=== PATIENT | female | born 1975 | race Caucasian/White ===

== ENCOUNTER → 2023-04-19 | Outpatient (CLI) | payer OTHER, SELFPAY ==
[2023-04-19 17:42] LABS: Prothrombin Time (Protime)PT. 12.7 SECONDS (11.7-14.9)
[2023-04-19 17:43] LABS: Absolute Lymphocyte Count 2.21 X10^3/uL (0.83-4.51); Absolute Neutrophil Count 3.4 X10^3/uL (2.0-7.7); Basophil# 0.04 X10^3/uL; Basophil% 0.6 % (0-1); Eosinophil# 0.06 X10^3/uL; Hematocrit 41.4 % (37-47); Hemoglobin 13.6 g/dL (12.0-15.0); Lymphocyte # 2.21 X10^3/ul (0.83-4.51); Lymphocyte % 35.1 % (19-41); Mean Corp Hgb Conc 32.9 g/dL (32-36); Mean Corpuscular Hgb 31.3 pg (27.0-32.0); Mean Corpuscular Volume 95.2 fL (81-99); Mean Platelet Vol. 10.2 fl (6.2-12.0); Monocyte# 0.62 X10^3/uL; Monocyte% 9.9 % (0-10); NRBC Flagged by Analyzer 0 % (0-5); Neutrophil # 3.35 X10^3/uL (2.7-7.7); Neutrophil % 53.2 % (47-70); Platelet Count 251 K/mm3 (150-450); RBC Distribution Width CV 12.2 % (11.6-14.6); RBC Distribution Width SD 42.4 fl (35.1-43.9); Red Blood Count 4.35 M/mm3 (4.2-5.4); White Blood Count 6.3 K/mm3 (4.4-11.0)
[2023-04-19 17:44] LABS: Partial Thromboplast Time 29.4 Seconds (24.1-36.2)
[2023-04-19 18:07] LABS: Albumin, Serum 3.8 g/dL (3.2-5.0); Anion Gap 5 (5-15); BUN 11 mg/dL (7-18); BUN/Creat Ratio 14.3 RATIO (10-20); Calcium,Total 8.8 mg/dL (8.5-10.1); Chloride 108 mmol/L (98-107); Creatinine, Serum 0.77 mg/dL (0.55-1.02); EST Glomerular Filtration Rate 86 mL/min (>60); Est Glom Filt Rate - Afr Amer 104 mL/min (>60); Glucose 74 mg/dL (74-106); Potassium 3.8 mmol/L (3.5-5.1); Sodium Level 139 mmol/L (136-145)
[2023-04-21 08:08] LABS: Fructosamine 223 umol/L (0-285)
== END | disposition home or self-care (01) ==
PROVIDERS: PCP Family Medicine
DX: M16.12 Unilateral primary osteoarthritis, left hip (principal)
CPT/HCPCS: 36415; 80048; 81002; 82040; 82306; 82985; 83036; 85025; 85610; 85730; 87086

== ENCOUNTER → 2023-04-23 | Outpatient (CLI) | payer OTHER, SELFPAY ==
[2023-04-23 15:45] LABS: Color, Urine Yellow (Yellow); Glucose, Dipstick Normal (Normal); Ketone-Dipstick Negative (Negative); Leukocyte Esterase-Dipstick Negative /ul (Negative); Nitrite-Dipstick Negative (Negative); Occult Blood-Urine Negative /ul (Negative); Protein-Dipstick Negative (Negative); Specific Gravity, Urine 1.015 (1.002-1.030); Urine Bilirubin Dipstick Negative (Negative); Urine Clarity Clear (Clear); Urine Urobilinogen Normal (Normal)
--- OUTSIDE RECORDS SUMMARY | 2023-04-23 18:44 | XMS RPT_ITS | CCD ---
Author Name Unknown Address [id number] [place] [address] Organization [facility] Care Team Providers Care Movable Bulkhead Installer Name Role Phone Sanjeev Fuentes Unavailable Unavailable PROVIDER, UNKNOWN Unavailable Unavailable Adan Lawson Unavailable Unavailable Carlos Escalante MD Unavailable [phone] Bhanu Zee DO Unavailable Adan Lawson Primary Care Provider PRESTON CABEZAS Attending Unavailable ADAN LAWSON Primary Care Unavailable PRESTON CABEZAS Attending Unavailable ADAN LAWSON Primary Care Unavailable NO FAMILY PHYSICIAN, 837 Primary Care Unavail able NO FAMILY PHYSICIAN, 837 Primary Care Unavail able SANJEEV FUENTES MD Attending Unavailable Mahesh Snyder MD Primary Care Provider MAHESH SNYDER Primary Care Unavailable Allergies Allergy Classification Reported Allergen(s) Allergy Type Date of Onset Reaction(s) Facility (3 sources) Acetaminophen / HYDROcodone Drug Allergy 03-21-19 22 itching [facility] Work Phone: (3 sources) Clindamycin Drug Allergy 09-13-19 21 redness, hives [facility] Work Phone: (3 sources) Penicillin G Drug Allergy 09-13-19 21 hives [facility] Work Phone: (3 sources) Seafood; Translations: [SEAFOOD] food allergy 09-13-19 21 advised not to eat after allergy test [facility] Work Phone: (3 sources) Shellfish; Translations: [SHELLFISH] food allergy 09-13-19 21 advised not to eat after allergy test [facility] Work Phone: (3 sources) PLANT POLLENS; Translations: [PLANT POLLENS] allergy to substance 10-15-19 21 hay fever [facility] Work Phone: (3 sources) STINGING INSECTS; Translations: [STINGING INSECTS] allergy to substance 09-13-19 21 anaphylaxis [facility] Work Phone: (3 sources) GLUTEN INTOLERANCE; Translations: [GLUTEN INTOLERANCE] food allergy 09-13-19 avoid it for inflammatory issues [facility] Work Phone: (3 sources) Clindamycin; Translations: [CLINDAMYCIN] Drug Allergy 09-13-19 21 Itching, Rash, Hives, Unknown [facility] (3 sources) Penicillins; Translations: [PENICILLINS] Drug Intolerance 02-27-19 08 Hives, Itching, Rash, Unknown [facility] (2 sources) Contrast media; Translations: [CONTRAST DYE] Propensity to adverse reactions 02-27-19 08 [facility] Work Phone: (1 source) Penicillins Propensity to adverse reactions 02-27-19 08 [facility] Work Phone: Medications Current Medications Medication Drug Class(es) Dates Sig (Normalized) Sig (Original) baclofen 10 mg oral tablet (4 sources) gamma-Aminobutyric Acid-ergic Agonist Start: 09-24-2022 baclofen (Lioresal) 10 MG tablet Completed/Discontinued Medications Medication Drug Class(es) Dates Sig (Normalized) Sig (Original) acetaminophen 325 mg / oxyCODONE hydrochloride 5 mg oral tablet (1 source) Opioid Agonist PERCOCET 5-325 M G TABS Take 1 tablet by mouth as needed for pain oxycodone-acetami oma [id number] Ana Lilia Stoneine WOUND TREATMENT RN Ethinyl Estradiol / Levonorgestrel (1 source) Progestin, Estrogen, Progestin-containi ng Intrauterine Device Start: 06-16-2015 take 1 tablet by mouth once daily L-Norgest&E Estradiol-E Estrad (CAMRESE LO) 0.10 mg-20 mcg (84)/10 mcg (7) 3MPk Take 1 tablet by mouth once daily. 0 06/16/2015 Active Problems Active Problems Problem Classification Problem Date Documented Date Episodic/Chronic Disorders of lipid metabolism (1 source) Hyperlipidemia; Translations: [Hyperlipidemia, unspecified] Onset: 06-07-2009 06-07-2009 Chronic Endometriosis (1 source) Endometriosis (clinical); Translations: [Endometriosis, unspecified] Onset: 06-07-2009 06-07-2009 Chronic Joint disorders and dislocations; trauma-related (3 sources) Other articular cartilage disorders, left hip; Translations: [Articular cartilage disorder, pelvic region and thigh] Onset: 12-30-2020 12-30-2020 Chronic Other connective tissue disease (1 source) Iliopsoas bursitis of left hip; Translations: [Other bursitis of hip, left hip] Onset: 05-26-2021 05-26-2021 Episodic Other inflammatory condition of skin (1 source) Rosacea; Translations: [Rosacea, unspecified] Onset: 06-07-2009 06-07-2009 Chronic Other non-traumatic joint disorders (4 sources) Hip pain; Translations: [Pain in left hip] Onset: 05-17-2021 05-17-2021 Episodic Other non-traumatic joint disorders (2 sources) Pain in left hip; Translations: [Pain in left hip] Onset: 10-01-2022 Episodic Other screening for suspected conditions (not mental disorders or infectious disease) (2 sources) Encounter for screening mammogram for malignant neoplasm of breast; Translations: [Encntr screen mammogram for malignant neoplasm of breast] Onset: 12-03-2017 Episodic Regional enteritis and ulcerative colitis (1 source) Other ulcerative colitis without complications; Translations: [Other ulcerative colitis without complication (HCC)] Onset: 04-11-2022 Chronic Spondylosis; intervertebral disc disorders; other back problems (3 sources) Degeneration of lumbar intervertebral disc; Translations: [Other intervertebral disc degeneration, lumbar region] Onset: 10-13-2020 10-13-2020 Chronic Past or Other Problems Problem Classification Problem Date Documented Date Episodic/Chronic Noninfectious gastroenteritis (1 source) Colitis; Translations: [Noninfective gastroenteritis and colitis, unspecified] Onset: 06-07-2009 06-07-2009 Episodic Other non-traumatic joint disorders (3 sources) Disorder of hip joint; Translations: [Other specified joint disorders, left hip] Onset: 12-06-2020 12-06-2020 Episodic Other non-traumatic joint disorders (1 source) Arthralgia of the pelvic region and thigh; Translations: [Pain in unspecified hip] Onset: 09-22-2010 09-22-2010 Episodic Unclassified (3 sources) Problem Results Test Name Value Interpretation Reference Range Facil ity Vital Signs Date Time Vital Sign Value Performing Clinician Facility 10-12-2022 13:04-0400 Body height 162.6 cm Preston Cabezas MD Work Phone: [facility] 10-12-2022 13:04-0400 Body mass index (BMI) [Ratio] 23.17 kg/m2 Preston Cabezas MD Work Phone: [facility] 10-12-2022 13:04-0400 Body weight 61.24 kg Preston Cabezas MD Work Phone: [facility] 10-12-2022 13:04-0400 Diastolic blood pressure 74 mm[Hg] Preston Cabezas MD Work Phone: [facility] 10-12-2022 13:04-0400 Heart rate 79 /min Preston Cabezas MD Work Phone: [facility] 10-12-2022 13:04-0400 Systolic blood pressure 125 mm[Hg] Preston Cabezas MD Work Phone: [facility] 10-01-2022 16:21-0400 Body height 162.6 cm Preston Cabezas MD Work Phone: [facility] 10-01-2022 16:21-0400 Body mass index (BMI) [Ratio] 23.17 kg/m2 Preston Cabezas MD Work Phone: [facility] 10-01-2022 16:21-0400 Body weight 61.24 kg Preston Cabezas MD Work Phone: [facility] 10-01-2022 16:21-0400 Diastolic blood pressure 84 mm[Hg] Preston Cabezas MD Work Phone: [facility] 10-01-2022 16:21-0400 Heart rate 64 /min Preston Cabezas MD Work Phone: [facility] 10-01-2022 16:21-0400 Systolic blood pressure 136 mm[Hg] Preston Cabezas MD Work Phone: [facility] NEGATED: Highlighted [id number] 12:49-0400 Body height 162.56 cm Lindsay Spencer AT [facility] Work Phone: NEGATED: Highlighted [id number] 12:49-0400 Body height 163 cm Lindsay Spencer AT [facility] Work Phone: NEGATED: Highlighted [id number] 12:49-0400 Body mass index (BMI) [Ratio] 24.98 kg/m2 Lindsay Spencer AT [facility] Work Phone: NEGATED: Highlighted [id number] 12:49-0400 Body weight 65.77 kg Lindsay Spencer AT [facility] Work Phone: NEGATED: Highlighted [id number] 12:49-0400 Body weight 66 kg Lindsay Spencer AT [facility] Work Phone: NEGATED: Highlighted [id number] 10:47-0400 Body height 162.56 cm [facility] Work Phone: NEGATED: Highlighted [id number] 10:47-0400 Body height 163 cm [facility] Work Phone: NEGATED: Highlighted [id number] 10:47-0400 Body mass index (BMI) [Ratio] 24.98 kg/m2 [facility] Work Phone: NEGATED: Highlighted [id number] 10:47-0400 Body weight 65.77 kg [facility] Work Phone: NEGATED: Highlighted [id number] 10:47-0400 Body [facility] 66 [facility] NEGATED: Highlighted [id number] 13:54-0500 Body height 162.56 cm Ana Liliarenetta Brice WOUND TREATMENT RN [facility] Work Phone: NEGATED: Highlighted [id number] 13:54-0500 Body height 163 cm [facility] Work Phone: NEGATED: Highlighted [id number] 13:54-0500 Body mass index (BMI) [Ratio] 24.46 kg/m2 Ana Lilia [facility] Work Phone: NEGATED: Highlighted [id number] 13:54-0500 Body temperature 97.8 [degF] [facility] Work Phone: NEGATED: Highlighted [id number] 13:54-0500 Body temperature 97.88 [degF] [facility] Work Phone: NEGATED: Highlighted [id number] 13:54-0500 Body weight 64.41 kg Ana Liliarenetta Brice WOUND TREATMENT RN [facility] Work Phone: NEGATED: Highlighted [id number] 13:54-0500 [facility] Work Phone: Encounters Encounter Date Encounter Type Care Provider Facility Start: 02-07-2023 End: 02-08-2023 ambulatory [facility] Facility:[facility] Start: 02-07-2023 Encounter for genera l adult medical examination without abnormal [facility] Start: 12-04-2022 End: 12-05-2022 ambulatory 837 NO FAMILY PHYSICIAN Facility:[facility] Start: 10-12-2022 End: 10-12-2022 ambulatory [facility] Start: 10-12-2022 End: 10-12-2022 Patient encounter procedure Preston Cabezas MD Work Phone: [facility] Procedures Date Procedure Procedure Detail Performing Clinician Start: 05-26-2021 End: 05-26-2021 BP scrn no perf at interval Bhanu L Yayo DO Work Phone: Start: 05-26-2021 End: 05-26-2021 Calc BMI norm parameters Bhanu An Clelan d DO Work Phone: Start: 05-26-2021 End: 05-26-2021 Current tobacco non-user cad cap copd pv dm Bhanu L Yayo DO Work Phone: Start: 05-26-2021 End: 05-26-2021 Docrev cur meds by [facility] clin Bhanu Zee DO Work Phone: Start: 05-26-2021 End: 05-26-2021 No doc of pain Bhanu Juve Yayo DO Work Phone: Start: 05-26-2021 End: 05-26-2021 Patient encounter procedure Bhanuthang Zee DO Work Phone: Start: 05-17-2021 End: 05-17-2021 BP scrn no perf at interval Carlos Escalante MD Work Phone: Start: 05-17-2021 End: 05-17-2021 Calc BMI norm parameters Carlos hazel MD Work Phone: Start: 05-17-2021 End: 05-17-2021 Current tobacco non-user cad cap copd pv dm Carlos Escalante MD Work Phone: Start: 05-17-2021 End: 05-17-2021 Docrev cur meds by [facility] clin Carlos Escalante MD Work Phone: Start: 05-17-2021 End: 05-17-2021 Pain doc pos and plan Carlos Escalante MD Work Phone: Start: 05-17-2021 End: 05-17-2021 Patient encounter procedure Carlos Escalante MD Work Phone: Start: 04-04-2021 End: 04-04-2021 BP scrn no perf at interval Carlos Escalante MD Work Phone: Start: 04-04-2021 End: 04-04-2021 Calc BMI norm parameters Carlos hazel MD Work Phone: Start: 04-04-2021 End: 04-04-2021 Current tobacco non-user cad cap copd pv dm Carlos Escalante MD Work Phone: Start: 04-04-2021 End: 04-04-2021 Docrev cur meds by [facility] Carlos Escalante MD Work Phone: Start: 04-04-2021 End: 04-04-2021 Pain doc pos and plan Carlos Escalante MD Work Phone: Start: 04-04-2021 End: 04-04-2021 Patient encounter procedure Carlos Escalante MD Work Phone: Start: 03-07-2020 Lipid 1996 panel - S kerri or Plasma Xr Sepideh Start: 01-13-2020 End: 01-13-2020 Radex spine cervical 4 or 5 views [facility] Provider Start: 12-29-2007 Colonoscopy Xr Immanueli ck NEGATED: Highlighted rowStart: 05-26-2021 End: 05-26-2021 Documentation of current medications Lindsay LANCASTER NEGATED: Highlighted rowStart: 05-17-2021 End: 05-17-2021 Documentation of current medications Radha [facility] NEGATED: Highlighted rowStart: 04-04-2021 End: 04-04-2021 Documentation of current medications Ana Lilia Brice LPN Plan of Treatment Date Care Activity Detail Author Start: 2037 Hepatitis B Vaccine (1 of 3 - Risk 3-dose series) Hepatitis B Vaccine (1 of 3 - Risk 3-dose series) [facility] Start: 06-14-2027 Zoster Vaccines (1 of 2) Zoster Vaccines (1 of 2) [facility] Start: 04-11-2025 Diabetes Screening Diabetes Screening [facility] Start: 03-07-2025 Lipid 1996 panel - Serum or Plasma Lipid Screening [facility] Start: 10-19-2022 Covid-19 Vaccine ( season) Covid-19 Vaccine () [facility] Start: 10-19-2022 Influenza vaccination Influenza Vaccine (#1) [facility] Start: 10-12-2022 End: 10-12-2022 Patient encounter procedure 10/12/2022 1:00 PM EDT [facility] [address] [place] [address] Preston Cabezas MD [address] [place] [address] [address] [place] [address] [facility] Start: 2022 Cologuard (FIT-DNA) Cologuard (FIT-DNA) [facility] Start: 2022 Colonoscopy Colonoscopy [facility] Start: 2022 Colorectal Cancer Screening Colorectal Cancer Screening [facility] Start: [address] Colonography [facility] Start: 2022 Fecal Occult Blood Fecal Occult Blood [facility] Start: 2022 Sigmoidoscopy Sigmoidoscopy [facility] Start: 02-18-2022 Depression Assessment Depression Assessment [facility] Start: 06-14-2021 End: 06-14-2021 Patient encounter procedure Appointment [facility] Work Phone: Start: 2021 End: 2021 Patient encounter procedure Appointment [facility] Work Phone: Start: 06-12-2021 End: 06-12-2021 Patient encounter procedure Appointment [facility] Work Phone: Start: 06-07-2021 End: 06-07-2021 Patient encounter procedure Appointment [facility] Work Phone: Start: 06-05-2021 End: 06-05-2021 Patient encounter procedure Appointment [facility] Work Phone: Start: 05-31-2021 End: 05-31-2021 Patient encounter procedure Appointment [facility] Work Phone: Start: 05-29-2021 End: 05-29-2021 Patient encounter procedure Appointment [facility] Work Phone: Start: 05-26-2021 End: 05-26-2021 Patient encounter procedure Appointment [facility] Work Phone: Start: 05-24-2021 End: 05-24-2021 Patient encounter procedure Appointment [facility] Work Phone: Start: 05-22-2021 End: 05-22-2021 Patient encounter procedure Appointment [facility] Work Phone: Start: 05-17-2021 End: 05-17-2021 Patient encounter procedure Appointment [facility] Work Phone: Start: 05-17-2021 End: 05-17-2021 Us compl joint r-t w/image documentation Musculoskeletal ultrasound- nonvascular - left lower extremity [facility] Work Phone: Start: 04-26-2021 End: 04-26-2021 Patient encounter procedure Appointment [facility] Work Phone: Start: 04-24-2021 End: 04-24-2021 Patient encounter procedure Appointment [facility] Work Phone: Start: 04-19-2021 End: 04-19-2021 Patient encounter procedure Appointment [facility] Work Phone: Start: 04-17-2021 End: 04-17-2021 Patient encounter procedure Appointment [facility] Work Phone: Start: 04-12-2021 End: 04-12-2021 Patient encounter procedure Appointment [facility] Work Phone: Start: 04-10-2021 End: 04-10-2021 Patient encounter procedure Appointment [facility] Work Phone: Start: 04-05-2021 End: 04-05-2021 Patient encounter procedure Appointment [facility] Work Phone: Start: 04-04-2021 End: 04-04-2021 Patient encounter procedure Appointment [facility] Work Phone: Start: 12-03-2018 Mammography Mammogram Screening [facility] Start: 2017 Screening for malignant neoplasm of breast Mammogram [facility] Start: 04-19-2015 Pap Testing Pap Testing [facility] Start: 06-14-2007 HPV Testing HPV Testing [facility] Start: 06-14-2007 Screening for malignant neoplasm of cervix [facility] Start: 1998 Screening for malignant neoplasm of cervix Pap Smear [facility] Start: 1996 DTaP/Tdap/Td Vaccines (1 - Tdap) DTaP/Tdap/Td Vaccines (1 - Tdap) [facility] Start: 1996 Hepatitis A Vaccine (1 of 2 - Risk 2-dose series) Hepatitis A Vaccine (1 of 2 - Risk 2-dose series) [facility] Start: 1996 Urine microalbumin profile DTaP,Tdap,Td Vaccine (1 - Tdap) [facility] Start: 06-14-1995 Hepatitis C screening Hepatitis C Screening [facility] Start: 06-14-1995 Hepatitis C Screening Hepatitis C Screening [facility] Start: 06-14-1995 HIV Screening HIV Screening [facility] Start: 06-14-1995 MMR Vaccine (1 of 2 - Risk 2-dose series) MMR Vaccine (1 of 2 - Risk 2-dose series) [facility] Start: 1989 Depression Screening Depression Screening [facility] Start: 06-14-1987 Meningococcal B Vaccine: Consider Based On Risk (1 of 4 - Increased Risk) Meningococcal B Vaccine: Consider Based On Risk (1 of 4 - Increased Risk) [facility] Start: 1978 MMR Vaccines (1 of 1 - Standard series) MMR Vaccines (1 of 1 - Standard series) [facility] Start: 1977 Hepatitis B Vaccines (1 of 3 - 3-dose series) Hepatitis B Vaccines (1 of 3 - 3-dose series) [facility] Start: 1977 HIV screening HIV Screening [facility] Start: 1977 Screening for malignant neoplasm of colon [facility] Immunizations Immunization Date Immunization Notes Care Provider Fa cility 11-17-2021 influenza virus vacc ine, unspecified formulation Preston Cabezas MD Work Phone: [facility] Payers Date Payer Category Payer Unknown 2016 Unknown [id number] 1975 Unknown [id number] 1975 Unknown [id number] 1975 Unknown [id number] Social History Date Type Detail Facility Start: 04-04-2021 End: 05-26-2021 Assertion Unknown if ever smoked [facility] Work Phone: Start: 10-01-2022 Tobacco smoking stat [facility] Never smoked tobacco [facility] Start: 10-01-2022 End: 10-12-2022 History of Social function [facility] Start: 10-01-2022 End: 10-12-2022 Tobacco use panel [facility] Start: 1975 Sex Assigned At Not on file [facility] Start: 12-14-2019 End: 10-12-2022 Exposure to SARS-CoV-2 (event) Not sure [facility] Start: 02-24-2016 Alcohol intake Current non-dr machine clothing replacer of alcohol (finding) [facility] History of Present illness Narrative 10-12-2022 Preston Cabeazs MD - 10/12/2022 1:00 PM EDT Note Date & Type Note Facility 10-12-2022 History of Presen t illness Narrative Images from the original note were not included. [facility] [address] [facility] [address] Dept: [phone] Dept Chief Complaint Patient presents with Follow-up PRP LEFT hip Subjective History of Present Illness: Aleida Kapoor is a 47 y.o. female who presents today for ultrasound guided injection of left hip. She rates symptoms as a 5/10 at rest and a 8/10 at worst. Imaging to date: none Prior targeted injections: 3x CSI Psoas, 3x 2021 Back injections w/pain management, diagnostic hip injection Fall risk assessment: Less than 65, not applicable Objective Visit Vitals BP 125/74 Pulse 79 Physical Exam: No sign of infection overlying injection site. External Notes No pertinent interval updates Labs No results found for: HGBA1C No results found for: CREATININE Imaging I have personally reviewed the images pertinent to the appointment today EMG/NCT N/A Procedure Procedure completed today, details below Use of ultrasound visualization of the needle was required to increase patient's safety by excluding inadvertent intermuscular or intertendinous placement and minimizing bleeding and injury by avoiding osteochondral and nearby neurovascular structures. Guidance also maximizes accurate injection placement and likely clinical benefit beyond that obtained from a non-guided injection. This allows increased diagnostic specificity when evaluating effectiveness of the injection. Verbal and written consent was obtained from the patient. Consent included possibility of bleeding, infection, worsening pain. Right antecubital blood draw yielded 53 mL of whole blood which was spun down, using the Zwamy system dialing in 2 % hematocrit, PRP that yielded 2.4mL of PRP and I added 3.6mL of PPP for a total of 6 mL. Using real-time ultrasound I localized the Left hip joint. Sterile prep. Using a 20-gauge 3.5 inch needle and using direct ultrasound guidance I anesthetized the soft tissues with 5mL of 1% lidocaine to and then injected 1 mL of normal saline to flush any residual anesthetic out of the needle. I then injected a total of 6 mL of the PRP into the Left hip joint. The patient tolerated the procedure well. There were no complications. Pertinent ultrasound images were saved. Assessment Diagnosis Plan 1. Left hip pain lidocaine (Xylocaine) 1 % injection 5 mL sodium chloride (PF) 0.9 % flush 1 mL Plan - Post injection instructions were given to the patient. - Keep with HEP. - FU per Dr. Escalante - approx 6 weeks. Follow up if symptoms worsen or fail to improve. Preston Cabezas MD 10/12/2022 1:04 PM Please note that portions of this note may have been completed with voice recognition software. Documentation reviewed prior to signing but minor errors in traffic control supervisor may have occurred. documented in this encounter [facility] History of Present illness Narrative 10-01-2022 Preston Cabezas MD - 10/01/2022 3:45 PM EDT Note Date & Type Note Facility 10-01-2022 History of Presen t illness Narrative Images from the original note were not included. [facility] [address] [place] [address] [place] [id number] Dept: [phone] Dept Chief Complaint Patient presents with New Patient PRP consultation Subjective History of Present Illness: Aleida Kapoor is a 47 y.o. female who presents today for evaluation of left hip pain. Location: sharp pain laterally, achy pain in hip flexors / anteriorly, shooting pains posteriorly. Onset: December 2019 - Symptoms presented as back pain for a year before resolving to hip pain Injury: no - avid running 20 miles a week Quality: aching, pressure, tight/stiff, sharp, and pulling Mechanical symptoms: popping, crepitus Radiation of symptoms: no Severity: 6/10 at rest and 9/10 at worst Exacerbating factor(s): sitting, walking, exercise (lunges/squats/jumps) Relieving factor(s): lying down, Psoas stretches Timing: all day Imaging to date: none Treatment to date: PT/OT/HEP: Formal PT prior to original surgery in 03/2021 for 10 months. 2x a week for 4-5 months after each surgery. Still does HEP regularly. Ice: yes, helpful Heat: no Medications: Tylenol: yes, not helpful NSAIDs: yes, Ibuprofen/Motrin/Advil, not helpful Oral steroids: yes, Prednisone, not helpful 2 rounds Muscle relaxants: yes, Baclofen/Lioresal, helpful Nerve medications: no Targeted injections: 3x CSI Psoas, 3x 2021 Back injections w/pain management, diagnostic hip injection. Assistive devices: none Prior surgery: YES Occupation: inspector timers, School counselor Fall risk assessment: Less than 65, not applicable Objective Visit Vitals BP 136/84 Pulse 64 Physical Exam: General: Alert, well appearing, no acute distress. Respiratory: Breathing comfortably on room air. No respiratory distress. Skin: Warm, dry, intact. No visible rashes or erythema overlying area of focused exam. LEFT HIP: Pain with deep flexion and with FADIR. Positive Dhremann's sign. External Notes I personally reviewed external notes from: Dr. Escalante 09/18/22, Dr. Zee 09/05/22 Labs No results found for: HGBA1C No results found for: CREATININE Imaging None available EMG/NCT N/A Procedure No procedures completed today Assessment Diagnosis Plan 1. Left hip pain Plan -We discussed the role of PRP and that our goal is to obtain 60-80% improvement on the problem. There is an understanding that it can take about 6 to 8 weeks to notice any benefit from this PRP injection. We reviewed that my typical approach is 1 injection of PRP (except for the knee) and wait approximately 3-4 months and sometimes up to 6 months prior to repeat injection depending on the benefit. Pre and post care information of the PRP injection was given to the patient. No follow-ups on file. Preston Cabezas MD 10/01/2022 4:01 PM Please note that portions of this note may have been completed with voice recognition software. Documentation reviewed prior to signing but minor errors in traffic control supervisor may have occurred. documented in this encounter [facility] Instructions 05-26-2021 Note Date & Type Note Facility [facility] Work Phone: Instructions 04-04-2021 Note Date & Type Note Facility [facility] Work Phone: History of Present illness Narrative 01-13-2020 Margie Moise (Tech), Tech - 01/13/2020 2:45 PM EST Note Date & Type Note Facility 01-13-2020 History of Presen t illness Narrative Radiology Service Progress Note PATIENT NAME: Aleida Kapoor DATE OF SERVICE: January 13, 2020 TIME: 12:37 PM PATIENT IDENTITY VERIFICATION COMPLETED USING TWO (2) IDENTIFIERS: Name and Date of confirmed by patient verbally. FALL SCREENING: Has the patient had 2 falls in the last year or 1 fall with injury or currently using an Ambulatory Assistive Device (Walker, Cane, Wheelchair, Crutches, etc.)? No PATIENT GENDER DATA: Female. status: : No status: NO. PATIENT RELEVANT IMPLANT DATA REVIEWED: Not Applicable RADIOLOGY DEPARTMENT: General X-ray: Exam(s) Completed: Spine X-Ray(s): Cervical AP / LAT / OBL and Lumbar AP / LAT / L5-S1 Pelvis X-Ray: Pelvis with Hip Bilateral PERIPHERAL IV DATA: Not applicable SIGNED BY: Jose F Arevalo January 13, 2020 12:37 PM documented in this encounter [facility] History of Past illness Narrative 12-29-2007 Note Date & Type Note Facility documented as of this encounter (statuses as of 12/23/2022) [facility] Evaluation note Note Date & Type Note Facility Evaluation note There may be informa tion available, but it has not been provided by the sender. [facility] Work Phone: Evaluation note Note Date & Type Note Facility documented in this encounter [facility] Evaluation note Note Date & Type Note Facility documented in this encounter [facility] Instructions Note Date & Type Note Facility [facility] Work Phone: Summary Purpose Family History No Family History Records FoundNo Family History Records FoundThere may be information available, but it has not been provided by the sender.There may be information available, but it has not been provided by the sender.There may be information available, but it has not been provided by the sender.No Family History Records FoundNo Family History Records FoundNo Family History Records FoundNo Family History Records Found Advance Directives No Advanced Directives Records FoundNo Advanced Directives Records FoundThere may be information available, but it has not been provided by the sender.There may be information available, but it has not been provided by the sender.There may be information available, but it has not been provided by the sender.No Advanced Directives Records FoundNo Advanced Directives Records FoundNo Advanced Directives Records FoundNo Advanced Directives Records Found Chief Complaint Chief Complaint Description Start Date left hip post s/p left hip s cope with labral repair on 03/23/2021 Preliminary chief co mplaint data, not yet signed by the author as of Chief Complaint Description Start Date left hip pain Preliminary chief co mplaint data, not yet signed by the author as of Chief Complaint Description Start Date left hip pain Preliminary chief co mplaint data, not yet signed by the author as of Additional Source Comments INFORMATION SOURCE (unrecogn ized section and content) DATE CREATED AUTHOR AUTHOR'S ORGANIZ ATION 07/13/2020 [facility] DATE CREATED AUTHOR AUTHOR'S ORGANIZ ATION 10/13/[address] [facility] DATE CREATED AUTHOR AUTHOR'S ORGANIZ ATION 12/05/2022 [facility] DATE CREATED AUTHOR AUTHOR'S ORGANIZ ATION 02/08/2023 [facility] Reason for Visit (unrecogniz ed section and content) Reason For Visit Description Start Date Test Result Preliminary reason f or visit data, not yet signed by the author as of left hip pain Reason For Visit Description Start Date Injection - scheduled Preliminary reason f or visit data, not yet signed by the author as of left hip pain Reason Comments New Patient PRP consultation Reason Comments Follow-up PRP LEFT hip Reason Comments Radio Gen RMP Care Teams (unrecognized sec tion and content) [employer] Installer Relationship Specialty Start Date End Date Adan Lawson [address] [facility] [place] [address] PCP - General 11/29/17 [employer] Relationship Specialty Start Date End Date Mahesh Snyder MD [address] [facility] [place] [address] PCP - General 04/04/09 08/09/22 Source Comments (unrecognize d section and content) In the event this informatio n is protected by the Federal Confidentiality of Alcohol and Drug Abuse Patient Records regulations: The Federal rules restrict any use of the information to criminally investigate or prosecute any alcohol or drug abuse patient.[facility] FOR RECORDS PERTAINING TO PATIENTS WHO ARE OR HAVE BEEN ENROLLED IN A CHEMICAL DEPENDENCY/SUBSTANCEABUSE PROGRAM, SOME INFORMATION MAY BE OMITTED. This clinical summary was aggregated from multiple sources. Caution should be exercised in using it in the provision of clinical care. This summary normalizes information from multiple sources, and as a consequence, information in this document may materially change the coding, format and clinical context of patient data. In addition, data may be omitted in some cases. CLINICAL DECISIONS SHOULD BE BASED ON THE PRIMARY CLINICAL RECORDS. [facility] [employer] [facility]. provides no warranty or guarantee of the accuracy or completeness of information in this document.
== END | disposition home or self-care (01) ==
LOC: LABSPEC 13:35
PROVIDERS: PCP Family Medicine
DX: M16.12 Unilateral primary osteoarthritis, left hip (principal)
CPT/HCPCS: 81002; 87086